=== PATIENT | female | born 1930 | race Caucasian/White ===

== ENCOUNTER → 2016-07-15 | Outpatient (CLI) | payer MEDICARE, OTHER | LOC: CARD 15:01 | PROVIDERS: ATTEND Family Medicine | DX: I48.0 Paroxysmal atrial fibrillation (principal); R00.9 Unspecified abnormalities of heart beat | CPT/HCPCS: 93005 ==

== ENCOUNTER 2016-10-25 12:59 | Outpatient (RCR) | payer MEDICARE, OTHER | END 2016-10-25 14:55 | disposition home or self-care (01) | PROVIDERS: ATTEND Nurse Practitioner Family | DX: M19.011 Primary osteoarthritis, right shoulder (principal); M19.012 Primary osteoarthritis, left shoulder; M50.322 Other cervical disc degeneration at C5-C6 level; M50.323 Other cervical disc degeneration at C6-C7 level ==

== ENCOUNTER → 2017-12-03 | Outpatient (CLI) | payer MEDICARE, OTHER ==
[2017-12-03 15:37] LABS: HEMOGLOBIN 14.5 G/DL (11.5-16.0); MEAN PLATELET VOLUME 9.1 FL (7.4-10.4); RED BLOOD COUNT 4.79 10^6/uL (4.35-5.85); RED CELL DISTRIBUTION WIDTH 13.8 % (10.0-14.5); WHITE BLOOD COUNT 8.5 10^3/uL (4.3-11.0)
[2017-12-03 15:53] LABS: BUN/CREATININE RATIO 10; CARBON DIOXIDE 26 MMOL/L (21-32); CHLORIDE 106 MMOL/L (98-107); CREATININE SERUM 0.69 MG/DL (0.60-1.30); GFR ESTIMATED > 60; POTASSIUM 3.2 MMOL/L (3.6-5.0); SODIUM 143 MMOL/L (135-145)
== END ==
LOC: CARD 14:55
PROVIDERS: ATTEND Specialist
DX: Z01.810 Encounter for preprocedural cardiovascular examination (principal); Z01.812 Encounter for preprocedural laboratory examination
CPT/HCPCS: 36415; 80051; 82565; 82947; 84520; 85027; 93005

== ENCOUNTER → 2018-01-06 | Outpatient (CLI) | payer MEDICARE, OTHER ==
[~2018-01-06] VITALS: Ht 162.6 cm; Wt 72.6 kg
[~2018-01-06] MED LIST: CATHETER FLUSH 10 ML SYR IV PRN; REGADENOSON 0.4 MG/5 ML SYR (LEXISCAN) IV ONE
[2018-01-06 12:00] LABS: BASOPHILS # (AUTO) 0.1 10^3/uL (0.0-0.1); BASOPHILS % (AUTO) 1 % (0-10); EOSINOPHILS # (AUTO) 0.3 10^3/uL (0.0-0.3); EOSINOPHILS % (AUTO) 4 % (0-10); HEMATOCRIT 45 % (35-52); HEMOGLOBIN 14.8 G/DL (11.5-16.0); LYMPHOCYTES # (AUTO) 2.9 X 10^3 (1.0-4.0); LYMPHOCYTES % (AUTO) 36 % (12-44); MEAN CORPUSCULAR HEMOGLOBIN 29 PG (25-34); MEAN CORPUSCULAR HGB CONC 33 G/DL (32-36); MEAN CORPUSCULAR VOLUME 87 FL (80-99); MONOCYTES # (AUTO) 0.7 X 10^3 (0.0-1.0); MONOCYTES % (AUTO) 9 % (0-12); NEUTROPHILS # (AUTO) 3.9 X 10^3 (1.8-7.8); NEUTROPHILS % (AUTO) 50 % (42-75); PLATELET COUNT 335 10^3/uL (130-400); RED BLOOD COUNT 5.13 10^6/uL (4.35-5.85); RED CELL DISTRIBUTION WIDTH 14.3 % (10.0-14.5); WHITE BLOOD COUNT 7.9 10^3/uL (4.3-11.0)
[2018-01-06 12:24] LABS: ALANINE AMINOTRANSFERASE 24 U/L (0-55); ALBUMIN 4.4 GM/DL (3.2-4.5); ALKALINE PHOSPHATASE 40 U/L (40-136); BILIRUBIN,TOTAL 0.6 MG/DL (0.1-1.0); BUN/CREATININE RATIO 11; CALCIUM 9.9 MG/DL (8.5-10.1); CARBON DIOXIDE 23 MMOL/L (21-32); CHLORIDE 107 MMOL/L (98-107); CHOLESTEROL 210 MG/DL (< 200); CREATININE SERUM 0.75 MG/DL (0.60-1.30); GFR ESTIMATED > 60; GLUCOSE 171 MG/DL (70-105); HDL CHOLESTEROL 63 MG/DL (40-60); MAGNESIUM 1.7 MG/DL (1.8-2.4); POTASSIUM 4.1 MMOL/L (3.6-5.0); SODIUM 142 MMOL/L (135-145); TOTAL PROTEIN 7.2 GM/DL (6.4-8.2); TRIGLYCERIDES 124 MG/DL (<150); VLDL CHOLESTEROL 25 MG/DL (5-40)
[2018-01-06 12:33] LABS: ERYTHROCYTE SEDIMENTATION RATE 3 MM/HR (0-30)
[2018-01-06 13:36] VITALS: BP 139/73
[2018-01-06 13:40] VITALS: BP 146/75
--- NOTE | 2018-01-07 09:01 | STRESS TEST ---
DATE OF SERVICE: 01/06/2018 RESTING AND POST REGADENOSON TECHETIUM-99M TETROFOSMIN SPECT CT IMAGING ORDERING PHYSICIAN: Sera Corrales APRN PRIMARY PHYSICIAN: Dr. Villa. CLINICAL DIAGNOSES: Chest discomfort, shortness of breath. Baseline images were carried out after injection of 10.95 mCi technetium-99m Tetrofosmin. This is followed by 0.4 mg regadenoson and 29.9 mCi of technetium-99m tetrofosmin for stress imaging. The electrocardiogram showed sinus rhythm at baseline. Sinus arrhythmia was seen. The electrocardiogram did not change significantly with the regadenoson infusion. The patient tolerated the procedure well. Review of images at rest and following stress does not indicate any distinct perfusion defects consistent with significant myocardial ischemia or infarction. Gated images show normal global left ventricular systolic function with normal regional wall motion. Left ventricular ejection fraction is calculated to be 63%. Left ventricular end diastolic volume is 32 mL. TID is absent (1.02). CONCLUSIONS: 1. No evidence of significant myocardial ischemia or infarction on this study. 2. Normal regional wall motion. 3. Normal global left ventricular systolic function with a calculated ejection fraction of 63%. Job ID: [id number] DocumentID: [id number] Dictated Date: 01/07/2018 08:28:44 Foreign Collection Clerk Date: 01/07/2018 09:01:10 Dictated By: SHARYN EMMANUEL MD, MA, FACP, FACC,
== END ==
LOC: CARD 11:30
PROVIDERS: ATTEND Nurse Practitioner Family
DX: R07.89 Other chest pain (principal); E11.9 Type 2 diabetes mellitus without complications; I10 Essential (primary) hypertension; R06.02 Shortness of breath
CPT/HCPCS: 36415; 78452; 80053; 80061; 83735; 84443; 85025; 85652; 93017

== ENCOUNTER → 2018-02-06 | Outpatient (CLI) | payer MEDICARE, OTHER | LOC: CARD 09:44 | PROVIDERS: ATTEND Nurse Practitioner Family | DX: I10 Essential (primary) hypertension (principal); R06.02 Shortness of breath; R07.89 Other chest pain; I34.0 Nonrheumatic mitral (valve) insufficiency | CPT/HCPCS: 93306 ==